=== PATIENT | male | born 1930 | race Caucasian/White ===

== ENCOUNTER 2020-01-23 07:00 | Outpatient (CLI) | payer MEDICARE, BC, OTHER ==
[2020-01-24 11:46] LABS: SARS-CoV-2 MS2 Positive; SARS-CoV-2 N Gene Negative; SARS-CoV-2 S Gene Negative; SARS-CoV-2 orf1ab Negative
== END 2020-01-23 07:01 | disposition home or self-care (01) ==
LOC: LABBT 07:00
PROVIDERS: ATTEND Ophthalmology Retina Specialist
DX: Z01.812 Encounter for preprocedural laboratory examination (principal); Z11.59 Encounter for screening for other viral diseases; H35.371 Puckering of macula, right eye
CPT/HCPCS: 87635; U0003

== ENCOUNTER 2020-01-28 06:56 | Day surgery (SDC) | payer MEDICARE, BC ==
[2020-01-23 12:12] VITALS: BMI 33.9
[~2020-01-28 06:56] MED LIST: EPINEPHrine 0.3 MG in Ophthalmic Irrigation Solution 500 ML IRR SCH
[2020-01-28] MEDS ORDERED: Cyclopentolate 1% Opth Drop 2 ML BOT ONE (07:18)
[2020-01-28] MEDS ORDERED: Phenylephrine 2.5% Ophth Soln 5 ML BOT ONE (07:18)
[2020-01-28] MEDS ORDERED: Midazolam HCl 2 mg/2 ml Vial ONE (08:38)
[2020-01-28] MEDS ORDERED: Fentanyl 100 MCG/2 ML VIAL ONE (08:38)
[2020-01-28] MEDS ORDERED: CEFAZOLIN 1 GM VIAL ONE (10:39)
[2020-01-28] MEDS ORDERED: Lidocaine 4% PF 5 ML AMP ONE (10:39)
[2020-01-28] MEDS ORDERED: Lidocaine 1% PF 5 ML VIAL ONE (10:39)
[2020-01-28] MEDS ORDERED: Bupivacaine PF 0.75% SDV 10 ML ONE (10:39)
[2020-01-28] MEDS ORDERED: Triamcinolone 40 MG/ML VIAL ONE (10:39)
[2020-01-28] MEDS ORDERED: Indocyanine Green 25 MG/10 ML VIAL ONE (10:39)
[2020-01-28] MEDS ORDERED: Maxitrol 0.1% Opth Oint 3.5 GM TUBE ONE (10:41)
--- NOTE | 2020-01-28 10:43 | OP ---
DATE OF PROCEDURE: 01/28/2020 PRINCIPAL PREOPERATIVE DIAGNOSIS: Epiretinal membrane, right eye. POSTOPERATIVE DIAGNOSIS: Epiretinal membrane, right eye. PROCEDURES PERFORMED: 1. 25-gauge pars plana vitrectomy, right eye. 2. Epiretinal membrane/internal limiting membrane removal, right eye. 3. Central corneal scraping, right eye. ESTIMATED BLOOD LOSS: None. SPECIMENS REMOVED: None. COMPLICATIONS: None. ANESTHESIA: MAC with sub-Tenon's block. DESCRIPTION OF PROCEDURE: The patient was identified in the preoperative holding area, where the correct eye being the right eye was marked for surgery. The patient was taken to the operating room, where MAC anesthesia was induced. The right eye was prepped and draped in the usual sterile ophthalmic fashion for surgery. A wire-clip lid speculum was placed. An inferonasal conjunctival peritomy was fashioned with Anival scissors for administration of sub-Tenon's block. The block consisted of 1:1 ratio of 4% lidocaine and 0.75% Marcaine. A total of 5 mL was administered. A standard 25-gauge pars plana vitrectomy platform was fashioned with cannulas placed approximately 3.5 mm from the limbus. The infusion was noted to be within the vitreous cavity prior to being turned on to infusion pressure of 30 mmHg. The light pipe and microvitrector were introduced into the eye in visualization of the BIOM viewing system. A careful core and peripheral shave vitrectomy were performed. Following vitrectomy, ICG dye was inserted into the eye to stain the internal limiting membrane. During the early stages of membrane peeling, the central cornea was noted to have progressive edema. Therefore, the decision was made to scrape the central cornea. This move significantly improved the visualization of the macula. Subsequently using the Gurwinder ILM forceps, the epiretinal membrane was gently removed in a circumferential fashion about the fovea. The peel extended approximately 2 disk diameters in radius circumferentially. The internal limiting membrane was removed in a segmental fashion. However, the decision was made to not pursue further removal of the internal limiting membrane to help to prevent an accidental damage. The microvitrector was reintroduced into the eye to remove any residual vitreous debris. A 360-degree scleral depressed exam of the periphery was performed and revealed no defects. The cannulas were sequentially removed and all sclerotomies were noted to be watertight. Subconjunctival Ancef and Kenalog were injected. The wire lid speculum was removed, followed by application of TobraDex ophthalmic ointment and a light patch and shield. The patient tolerated the procedure well and taken to the outpatient recovery area in good condition. Job ID: [id number]
== END 2020-01-28 10:30 | disposition home or self-care (01) ==
LOC: SDC 06:56
PROVIDERS: ATTEND Ophthalmology Retina Specialist
PROC: 08T43ZZ Resection of Right Vitreous, Percutaneous Approach (ICD-10-PCS; principal; 2020-01-28)
PROC: 08NE3ZZ Release Right Retina, Percutaneous Approach (ICD-10-PCS; 2020-01-28)
PROC: 08B8XZZ Excision of Right Cornea, External Approach (ICD-10-PCS; 2020-01-28)
DX: H35.371 Puckering of macula, right eye (principal); H18.20 Unspecified corneal edema; I42.9 Cardiomyopathy, unspecified; I10 Essential (primary) hypertension; E03.9 Hypothyroidism, unspecified; Z79.01 Long term (current) use of anticoagulants; Z79.82 Long term (current) use of aspirin; Z79.899 Other long term (current) drug therapy
CPT/HCPCS: J0171; J0690; J2001; J2250; J3010; J3301; J3490

== ENCOUNTER 2020-07-28 06:59 | Outpatient (CLI) | payer MEDICARE, BC ==
[2020-07-28 12:05] LABS: #Basophils 0.1 10x3/uL (0.0-0.2); #Eosinphils 0.5 10x3/uL (0.0-0.5); #Monocytes 0.6 10x3/uL (0.0-1.1); #Neutrophils 2.6 10x3/uL (1.5-8.4); %Eosinophils 10.1 % (0.0-6.0); %Lymphocytes 27.8 % (18.0-47.0); %Monocytes 11.2 % (0.0-10.0); %Neutrophils 49.7 % (40.0-75.0); Hemoglobin 9.8 g/dL (14.0-18.0); Mean Corpuscular HGB CONC 30.4 G/DL (32.0-36.0); Mean Corpuscular Hemoglobin 26.6 PG (27.0-33.0); Mean Corpuscular Volume 87.5 fl (80.0-100.0); Mean Platelet Volume 9.8 fl (7.4-10.4); Platelet Count 321 10x3/uL (130-400); RBC Distribution Width 17.1 % (11.5-14.5); Red Blood Cell (RBC) Count 3.68 10x6/uL (4.40-5.80); White Blood Cell (WBC) Count 5.3 10x3/uL (4.5-11.0)
[2020-07-28 12:16] LABS: Anion Gap 13 mmol/L (10-20); BUN (Urea Nitrogen) 22 mg/dL (8.4-25.7); Calc. Creatinine Clearance 0 mL/min (70-130); Calcium 8.7 mg/dL (7.8-10.44); Carbon Dioxide 26 mmol/L (23-31); Chloride 105 mmol/L (98-107); Glucose 138 mg/dL (83-110); Potassium 4.3 mmol/L (3.5-5.1); Sodium 140 mmol/L (136-145)
[2020-07-28 20:52] LABS: SARS-CoV-2 PCR by NAA Not Detected (NotDetected)
== END 2020-07-28 07:00 | disposition home or self-care (01) ==
LOC: LABBT 06:59
PROVIDERS: ATTEND Internal Medicine Cardiovascular Disease
DX: Z01.812 Encounter for preprocedural laboratory examination (principal); Z20.822 Contact with and (suspected) exposure to COVID-19; I48.91 Unspecified atrial fibrillation
CPT/HCPCS: 80048; 85025; U0003; U0005; 87635

== ENCOUNTER 2020-07-31 10:07 | Day surgery (SDC) | payer MEDICARE, BC ==
[2020-07-29 09:52] VITALS: BMI 33.3
[2020-07-31] MEDS ORDERED: PROPOFOL 20 ML ONE (12:32)
--- NOTE | 2020-07-31 16:01 | EKG ---
Test Reason : PREOP CARDIOVERSION Blood Pressure : / mmHG Vent. Rate : 077 BPM Atrial Rate : 092 BPM P-R Int : 000 ms QRS Dur : 116 ms QT Int : 418 ms P-R-T Axes : 000 -20 -22 degrees QTc Int : 473 ms Atrial fibrillation Low voltage QRS Inferior infarct , age undetermined Cannot rule out Anterior infarct , age undetermined Nonspecific ST-T changes Abnormal ECG Confirmed by DR. Alma MARIE (3) on 07/31/2020 4:01:33 PM Referred By: DANIELLE Confirmed By:DR. Alma MARIE
--- NOTE | 2020-07-31 16:02 | EKG ---
Test Reason : POST CARDIOVERSION Blood Pressure : / mmHG Vent. Rate : 051 BPM Atrial Rate : 051 BPM P-R Int : 232 ms QRS Dur : 114 ms QT Int : 476 ms P-R-T Axes : 036 -24 -16 degrees QTc Int : 438 ms Sinus bradycardia with 1st degree A-V block Inferior infarct , age undetermined Nonspecific ST-T changes Low voltage QRS Abnormal ECG Confirmed by DR. Alma MARIE (3) on 07/31/2020 4:02:13 PM Referred By: DANIELLE Confirmed By:DR. Alma MARIE
--- NOTE | 2020-08-06 14:48 | CCLSPC ---
PROCEDURE PERFORMED: Direct current synchronized cardioversion. SUMMARY: Mr. Andre is a pleasant 89-year-old white gentleman, who comes to the outpatient area for a planned cardioversion. He was sedated by the Anesthesiology Department. Please see their notes for details. After adequate sedation was achieved, one single shock of 200 joules in a synchronized fashion was delivered successfully converting him into sinus rhythm. RECOMMENDATIONS: 1. Continue full anticoagulation. 2. Continue other medications. 3. Follow up in the office in 4 to 6 weeks. Job ID: [id number]
== END 2020-07-31 13:20 | disposition home or self-care (01) ==
LOC: CCL 10:07
PROVIDERS: ATTEND Internal Medicine Cardiovascular Disease
PROC: 5A2204Z Restoration of Cardiac Rhythm, Single (ICD-10-PCS; principal; 2020-07-31)
DX: I48.0 Paroxysmal atrial fibrillation (principal); I25.10 Atherosclerotic heart disease of native coronary artery without angina pectoris; I13.0 Hypertensive heart and chronic kidney disease with heart failure and stage 1 through stage 4 chronic kidney disease, or unspecified chronic kidney disease; I50.22 Chronic systolic (congestive) heart failure; E11.9 Type 2 diabetes mellitus without complications; N19 Unspecified kidney failure; I65.23 Occlusion and stenosis of bilateral carotid arteries; Z79.01 Long term (current) use of anticoagulants; Z79.899 Other long term (current) drug therapy
CPT/HCPCS: 92960; 93005; 93010; J2704